=== PATIENT | female | born 1975 | race Caucasian/White ===

== ENCOUNTER 2021-12-01 23:27 | Emergency (ER) | payer SELFPAY ==
[~2021-12-01] VITALS: Ht 172.7 cm; Wt 64.0 kg
[2021-12-02] MEDS ORDERED: MIDAZOLAM HCL 2 MG/2 ML VIAL IM ONE
[2021-12-02] MEDS ORDERED: SODIUM CHLORIDE 0.9% 1,000 ML IV ONE
[2021-12-02 00:17] LABS: CHLORIDE 103 mEq/L (98-107)
[2021-12-02 00:19] VITALS: BP 140/96
[2021-12-02 00:19] LABS: HCG SCREEN NEGATIVE
[2021-12-02 00:30] LABS: ETHANOL BLOOD 372 mg/dL
[2021-12-02 01:13] LABS: BASOPHILS % 0.8 % (0.0-2.0); EOSINOPHILS % 0.1 % (0.0-5.0); HEMATOCRIT. 26.8 % (36.0-48.0); HEMOGLOBIN. 8.6 g/dL (12.0-16.0); LYMPHOCYTES % 17.6 % (20.0-50.0); MEAN CORPUSCULAR HEMOGLOBIN 28.6 pg (28.0-32.0); MEAN CORPUSCULAR VOLUME 88.9 fL (81.0-99.0); MEAN PLATELET VOLUME 6.9 fl (7.4-10.4); MONOCYTES % 4.5 % (2.0-8.0); PLATELET 685 x1000/uL (130-400); RED BLOOD CELL COUNT 3.02 mill/uL (4.2-5.4); RED CELL DISTRIBUTION WIDTH 16.3 % (11.6-14.6)
[2021-12-02] MEDS ORDERED: POTASSIUM CHLORIDE 20MEQ TABLET SR PO ONE (01:15)
== END 2021-12-02 01:53 | disposition home or self-care (01) ==
LOC: ER 23:27
DX: F10.129 Alcohol abuse with intoxication, unspecified (principal); Y90.8 Blood alcohol level of 240 mg/100 ml or more; E87.6 Hypokalemia; D64.9 Anemia, unspecified
CPT/HCPCS: 36415; 80053; 80320; 84703; 85025; 96360; 96372; 99283; J2250; J7030; G0480